=== PATIENT | male | born 1960 | race Caucasian/White ===

== ENCOUNTER 2016-10-19 15:51 | Emergency (ER) | payer OTHER ==
[2016-10-19 16:07] VITALS: BP 145/80; PULSE 56; RESP 20; TEMP 98.7
[2016-10-19] MEDS ORDERED: CYCLOBENZAPRINE 10 MG TAB PO STA (16:11)
[2016-10-19] MEDS ORDERED: IBUPROFEN 600 MG TAB PO STA (16:11)
--- NOTE | 2016-10-19 16:17 | ED ---
Back Pain HPI - General Chief Complaint: Back Pain/Injury Stated Complaint: [facility]/Back Pain Time Seen by Provider: 10/19/16 16:07 Source: patient, RN notes reviewed Limitations: no limitations - History of Present Illness Initial Comments: 56-year-old male presents emergency department with a chief complaint of low back pain. Patient states he was lifting a desk at work and moving around and he felt some pain in his low back. Patient states then he went to clean and felt the pain again so he thought that he should be seen. Patient denies any falls traumas or injuries with this. Patient denies any radiation unlinked any loss of bowel or bladder function. Patient states it is not currently having any other symptoms at this time.Patient denies any recent fever, chills, shortness of breath, chest pain, abdominal pain, nausea vomiting, numbness or tingling, dysuria or hematuria, constipation or diarrhea, headaches or visual changes, or any other current symptoms. - Related Data Previous Rx's Medication Instructions Recorded Ibuprofen [Motrin] 600 mg PO Q6HR PRN #20 tab 10/19/16 Orphenadrine [Norflex] 100 mg PO Q12H #10 tablet.er 10/19/16 Allergies Allergy/AdvReac Type Severity Reaction Status Date / Time No Known Allergies Allergy Verified 10/19/16 16:17 Review of Systems ROS Statement: Those systems with pertinent positive or pertinent negative responses have been documented in the HPI. ROS Other: All systems not noted in ROS Statement are negative. Past Medical History Past Medical History: No Reported History History of Any Multi-Drug Resistant Organisms: None Reported Past Surgical History: No Surgical Hx Reported Past Psychological History: No Psychological Hx Reported Smoking Status: Never smoker Past Alcohol Use History: None Reported Past Drug Use History: None Reported General Exam Limitations: no limitations General appearance: alert, in no apparent distress Eye exam: Present: normal appearance, PERRL, EOMI. Absent: scleral icterus, conjunctival injection, periorbital swelling Neck exam: Present: normal inspection. Absent: tenderness, meningismus, lymphadenopathy Respiratory exam: Present: normal lung sounds bilaterally. Absent: respiratory distress, wheezes, rales, rhonchi, stridor Cardiovascular Exam: Present: regular rate, normal rhythm, normal heart sounds. Absent: systolic murmur, diastolic murmur, rubs, gallop, clicks GI/Abdominal exam: Present: soft, normal bowel sounds. Absent: distended, tenderness, guarding, rebound, rigid Back exam: Present: normal inspection, full ROM, tenderness ((SI joint), other ( Negative straight leg raise bilaterally). Absent: vertebral tenderness, rash noted Neurological exam: Present: alert, oriented X3 Psychiatric exam: Present: normal affect, normal mood Skin exam: Present: warm, dry, intact, normal color. Absent: rash Course Vital Signs 10/19/16 16:04 Temperature 98.7 F Pulse Rate 56 L Respiratory 20 Rate Blood Pressure 145/80 O2 Sat by Pulse 99 Oximetry Medical Decision Making - Medical Decision Making 56-year-old male presents with what appears to be a lumbar strain. At this time patient underwent an x-ray doesn't show an acute processes. The patient notes relaxers and Motrin for home. We discussed return parameters and follow- up all patient's questions. He stated he understood the plan. He will be discharged home. - Radiology Data Radiology results: report reviewed, image reviewed Disposition Clinical Impression: Lumbar strain Disposition: HOME SELF-CARE Condition: Stable Instructions: Low Back Strain (ED), Lower Back Exercises (ED) Additional Instructions: Please use medication as discussed. Please follow up with family doctor if symptoms have not improved over the next two days. Please return to the emergency room if your symptoms increase or worsen or for any other concerns. Prescriptions: Ibuprofen [Motrin] 600 mg PO Q6HR PRN #20 tab PRN Reason: Pain Orphenadrine [Norflex] 100 mg PO Q12H #10 tablet.er Referrals: Kirby Zacarias DO [Primary Care Provider] - 1-2 days Time of Disposition: 16:30
--- NOTE | 2016-10-19 16:28 | XR ---
EXAMINATION TYPE: XR lumbar spine 2 or 3V DATE OF EXAM: 10/19/2016 COMPARISON: NONE HISTORY: Low back pain TECHNIQUE: Three-view lumbar spine FINDINGS: There 5 lumbar-type vertebral bodies. Pedicles are intact. Disc heights are preserved. Vert ebral body heights are preserved. Alignment is normal. IMPRESSION: 1. Normal three-view lumbar spine
== END 2016-10-19 16:48 | disposition home or self-care (01) ==
LOC: EC 15:51
DX: S39.012A Strain of muscle, fascia and tendon of lower back, initial encounter (principal); X50.0XXA Overexertion from strenuous movement or load, initial encounter; Y99.0 Civilian activity done for income or pay; Y92.69 Other specified industrial and construction area as the place of occurrence of the external cause
CPT/HCPCS: 72100; 99283

== ENCOUNTER → 2016-10-23 | Outpatient (CLI) | payer OTHER ==
--- NOTE | 2016-10-23 12:15 | XR ---
EXAMINATION TYPE: XR thoracic spine complete DATE OF EXAM: 10/23/2016 COMPARISON: NONE HISTORY: Pain Alignment is anatomic. There is no compression deformities. Narrowing of the disc space and mild hyp ertrophic changes are seen at all levels with the greatest involvement in the mid and lower thoracic spine. No compression deformities. IMPRESSION: 1. Multilevel degenerative disc disease.
== END | disposition home or self-care (01) ==
LOC: RADXRMAIN 11:52
PROVIDERS: ATTEND Emergency Medicine
DX: S23.3XXA Sprain of ligaments of thoracic spine, initial encounter (principal); M51.34 Other intervertebral disc degeneration, thoracic region; S39.012A Strain of muscle, fascia and tendon of lower back, initial encounter
CPT/HCPCS: 72072

== ENCOUNTER → 2017-03-04 | Outpatient (CLI) | payer OTHER ==
--- NOTE | 2017-03-04 09:33 | US ---
EXAMINATION TYPE: US gallbladder DATE OF EXAM: 03/04/2017 COMPARISON: NONE CLINICAL HISTORY: Upper Abdominal Pain R10.10. RUQ pain, NPO EXAM MEASUREMENTS: Liver Length: 15.6 cm Gallbladder Wall: 0.2 cm CHD: 0.4 cm Right Kidney: 11.3 x 4.8 x 4.7 cm Pancreas: Obscured by bowel gas Liver: wnl Gallbladder: wnl Evidence for sonographic Good's sign: neg CHD: wnl Right Kidney: No hydronephrosis or masses seen IMPRESSION: No evidence of cholelithiasis or acute cholecystitis.
== END | disposition home or self-care (01) ==
LOC: RADUSWWP 08:45
PROVIDERS: ATTEND Family Medicine
DX: R10.10 Upper abdominal pain, unspecified (principal)
CPT/HCPCS: 76705

== ENCOUNTER → 2018-06-15 | Outpatient (CLI) | payer OTHER ==
--- NOTE | 2018-06-15 13:42 | EST ---
EXERCISE STRESS DATE OF SERVICE: 06/15/2018 AGE: 58 SEX: Male HT: 72 WT: 198 PROTOCOL: Emmett STAGE: III DURATION OF EXERCISE: 9 minutes HEART RATE REST: 63 BLOOD PRESSURE REST: 156/97 MAXIMUM HEART RATE ACHIEVED: 141 MAXIMUM BLOOD PRESSURE: 198/97 85% MPHR: 137 100% MPHR: 161 METS: 10.5 INDICATIONS: Chest pain. CLINICAL INFORMATION: STRESS DATA: Pretesting physical examination showed a heart rate of 63, pressure is 156/97 mmHg. Baseline EKG showed sinus mechanism. The patient exercised on the treadmill according to Emmett protocol for a total of 9 minutes and achieved 10.5 METs. Max heart rate was 141, which is about 87% of maximum predicted heart rate. Maximum blood pressure was 198/97 mmHg. Clinically the patient did not have any symptoms of chest pain or discomfort and the EKG did not show any significant ST or T-wave abnormalities concerning for ischemia. CONCLUSION: 1. Excellent exercise tolerance. 2. Normal EKG in response to exercise. 3. Essentially normal stress test for the patient. MMODL / IJN: [id number] /
== END | disposition home or self-care (01) ==
LOC: RADNMMAIN 10:25
DX: R07.9 Chest pain, unspecified (principal)
CPT/HCPCS: 93017

== ENCOUNTER → 2018-06-28 | Outpatient (CLI) | payer OTHER ==
--- NOTE | 2018-06-28 12:59 | XR ---
Right hand and right wrist HISTORY: Sprain, pain 3 views of the right hand and 4 views of the right wrist are submitted. Probable geode, bone cyst present within the scaphoid. Alignment and joint spaces are maintained. 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 Correlate for becky ropriate history. IMPRESSION: No fracture or dislocation.
== END ==
LOC: RADXRMAIN 12:17
PROVIDERS: ATTEND Emergency Medicine
DX: S63.501A Unspecified sprain of right wrist, initial encounter (principal)

== ENCOUNTER → 2020-07-31 | Outpatient (CLI) | payer OTHER ==
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
== END | disposition home or self-care (01) ==
LOC: RADUSWWP 09:55
DX: R10.11 Right upper quadrant pain (principal); R10.32 Left lower quadrant pain; Z88.0 Allergy status to penicillin; Z88.1 Allergy status to other antibiotic agents; Z88.2 Allergy status to sulfonamides
CPT/HCPCS: 76700

== ENCOUNTER → 2023-07-02 | Day surgery (SDC) | payer OTHER ==
[~2023-07-02] MED LIST: LIDOCAINE 1% INJ 10MG/ML (20 ML MDV) ONE; PROPOFOL 10 MG/ML 20 ML VIAL IV ONE
[2023-07-02] MEDS: LACTATED RINGERS 1,000 ML IV SCH (12:17)
[2023-07-02 12:35] VITALS: TEMP 99
--- NOTE | 2023-07-02 13:19 | P.PCN ---
Date of Procedure: 07/02/23 Procedure(s) Performed: BRIEF HISTORY: Patient is a 63-year-old pleasant white male scheduled for an elective colonoscopy as a part of fo screeningr colon cancer. PROCEDURE PERFORMED: Colonoscopy. PREOPERATIVE DIAGNOSIS: Screening for colon cancer. IV sedation per Anesthesia. PROCEDURE: After informed consent was obtained, the patient, was brought into the endoscopy unit. IV sedation was administered by Anesthesia under continuous monitoring. Digital rectal examination was normal. Initially the Olympus CF-160 flexible video colonoscope was then inserted in the rectum, gradually advanced into the cecum without any difficulty. Careful examination was performed as the scope was gradually being withdrawn. Ileocecal valve and the appendiceal orifice were visualized and appeared normal. Prep was excellent. Mucosa of the cecum, ascending colon, transverse colon, descending colon, sigmoid colon, and rectum appeared normal. Retroflexion was performed in the rectum and small internal hemorrhoids were seen. The patient tolerated the procedure well. IMPRESSION: Normal-appearing colon from rectum to cecum with no evidence of colorectal neoplasia Small internal hemorrhoids . RECOMMENDATIONS: Findings of this examination were discussed with the patient as well as his family.. He was advised to have a repeat screening colonoscopy in 10 years.
[2023-07-02 13:45] VITALS: BP 144/95; PULSE 62; RESP 14
== END ==
LOC: ORWHC2ENDO 11:13
PROVIDERS: ATTEND Internal Medicine Gastroenterology
DX: Z12.11 Encounter for screening for malignant neoplasm of colon (principal); K64.8 Other hemorrhoids; I10 Essential (primary) hypertension; Z88.0 Allergy status to penicillin; Z88.2 Allergy status to sulfonamides; Z98.890 Other specified postprocedural states; Z79.899 Other long term (current) drug therapy
CPT/HCPCS: 45378; J2001; J2704